=== PATIENT | female | born 1985 | race African-American/Black ===

== ENCOUNTER 2017-03-08 15:35 | Emergency (ER) | payer MEDICAID | END 2017-03-08 17:13 | disposition home or self-care (01) | LOC: D.ER 15:35 | DX: J11.1 Influenza due to unidentified influenza virus with other respiratory manifestations (principal) ==

== ENCOUNTER 2018-04-09 19:28 | Emergency (ER) | payer MEDICAID ==
[~2018-04-09] VITALS: Ht 157.5 cm; Wt 86.4 kg
[2018-04-09 19:49] VITALS: Ht 157.5 cm; Wt 86.4 kg
[2018-04-09 20:33] LABS: APPEARANCE HAZY (CLEAR); BILIRUBIN NEGATIVE (NEGATIVE); COLOR YELLOW (YELLOW); GLUCOSE NEGATIVE (NEGATIVE); KETONE NEGATIVE (NEGATIVE); NITRITE NEGATIVE (NEGATIVE); PROTEIN TRACE mg/dL (NEGATIVE); SPECIFIC GRAVITY 1.025 (1.005-1.020); UROBILINOGEN NORMAL (NORMAL)
[2018-04-09 20:38] LABS: RED CELLS - URINE 0-5 /hpf (0-5)
[2018-04-09 20:39] LABS: BACTERIA MANY /hpf (NONE SEEN); MUCUS <1+ /lpf (NONE SEEN)
[2018-04-09 21:05] LABS: BASOPHILS 0.2 % (0-2); EOSINOPHILS 0.8 % (0-7); HEMATOCRIT 37.9 % (36.0-48.0); HEMOGLOBIN 12.4 g/dL (12-16); IMMATURE GRANULOCYTES 0.1 % (0-5); LYMPHOCYTES 38.8 % (15-50); MCHC 32.7 g/dL (31.0-37.0); MCV 76.4 fL (80.0-100.0); MEAN PLATELET VOLUME 10.2 fL (7.4-10.4); MONOCYTES 5.2 % (2-11); NEUTROPHILS 54.9 % (40-80); PLATELET COUNT 245 10x3/uL (130-400); RBC 4.96 10x6/uL (4.00-5.40); RDW 16.8 % (11.5-14.5); WBC 10.2 10x3/uL (4.8-10.8)
[2018-04-09 21:22] LABS: ALBUMIN 3.6 g/dL (3.4-5.0); ALKALINE PHOSPHATASE 36 U/L (46-116); ALT (SGPT) 28 U/L (10-68); BILIRUBIN - TOTAL 0.29 mg/dL (0.2-1.3); CALC OSMOLALITY 284 mosm/kg (275-300); CALCIUM 8.4 mg/dL (8.5-10.1); CARBON DIOXIDE 24.8 mmol/L (21.0-32.0); CHLORIDE - SERUM 108 mmol/L (98-107); CREATININE - SERUM 0.9 mg/dL (0.6-1.3); GLUCOSE 88 mg/dL (74-106); POTASSIUM - SERUM 3.5 mmol/L (3.5-5.1); PROTEIN - SERUM 6.9 g/dL (6.4-8.2); SODIUM 144 mmol/L (136-145); UREA NITROGEN 9 mg/dL (7-18); eGFR NON AFRICAN AMERICAN 78 mL/min (90-120)
[2018-04-09 21:27] LABS: AMYLASE - SERUM 53 U/L (25-115); LIPASE 162 U/L (73-393); TROPONIN-I < 0.017 ng/mL (0.000-0.060)
[2018-04-09] MEDS ORDERED: MACROBID100 MG PO (22:38)
[2018-04-09] MEDS ORDERED: ZOFRAN ODT4 MG/UDTAB PO (22:39)
[2018-04-09 22:59] VITALS: BP 129/87
== END 2018-04-09 22:59 | disposition home or self-care (01) ==
LOC: D.ER 19:28
PROVIDERS: Family Medicine
DX: N39.0 Urinary tract infection, site not specified (principal); R11.2 Nausea with vomiting, unspecified; F17.200 Nicotine dependence, unspecified, uncomplicated